=== PATIENT | female | born 1955 | race Two or more races ===

== ENCOUNTER 2016-11-15 13:27 | Emergency (ER) | payer OTHER ==
[2016-11-15 13:47] VITALS: BMI 43.9
--- NOTE | 2016-11-15 14:37 | PDOC ---
History of Present Illness - General Chief Complaint: Edema Stated Complaint: SWOLLEN LEGS Time Seen by Provider: 11/15/16 13:54 History Source: Patient, Other (daughter) Exam Limitations: Language Barrier - History of Present Illness Initial Comments: 11/15/16 14:32 61-year-old female presents to the ED with complaints of bilateral lower extremity pressure and swelling for the past 2 months left leg greater than the right. Patient states is went to other ERs and was given injections, recommended physical therapy and given antiembolic stockings with no improvement. Patient states has not followed up with her PCP since onset and decided come to the ER due to increased pain. Patient denies skin discoloration , sensory changes, or decreased warmth to the lower portion of her legs. Patient states pain, shortness of breath or chest pain. Timing/Duration: other (2 months) Severity: moderate Associated Symptoms: reports: denies symptoms Past History - Past Medical History Allergies/Adverse Reactions: Allergies Allergy/AdvReac Type Severity Reaction Status Date / Time No Known Allergies Allergy Verified 11/15/16 13:42 Home Medications: Ambulatory Orders Unobtainable [Unobtainable] 06/02/16 GI Disorders: Yes (GERD) HTN: Yes Hypercholesterolemia: Yes Thyroid Disease: Yes (on meds) - Psycho/Social/Smoking Cessation Hx Anxiety: No Suicidal Ideation: No Smoking History: Never smoked Have you smoked in the past 12 months: No Hx Alcohol Use: No Drug/Substance Use Hx: No Patient Lives Alone: No Lives with/in: family Review of Systems - Review of Systems Able to Perform ROS?: Yes Constitutional: No: Symptoms Reported Cardiac (ROS): Yes: Edema (bilateral lower extremity) ABD/GI: No: Symptoms Reported : No: Symptoms Reported Musculoskeletal: Yes: Joint Swelling, Muscle Pain Integumentary: No: Symptoms Reported Neurological: No: Symptoms reported Hematologic/Lymphatic: No: Symptoms Reported *Physical Exam - Vital Signs Last Vital Signs Temp Pulse Resp BP Pulse Ox 98 F 92 H 19 143/80 95 11/15/16 13:43 11/15/16 13:43 11/15/16 13:43 11/15/16 13:43 11/15/16 13:43 - Physical Exam General Appearance: Yes: Nourished, Appropriately Dressed. No: Apparent Distress HEENT: positive: EOMI, JUAN. negative: Pale Conjunctivae Neck: positive: Supple Respiratory/Chest: positive: Lungs Clear, Normal Breath Sounds. negative: Respiratory Distress, Accessory Muscle Use Cardiovascular: positive: Regular Rhythm, Regular Rate. negative: Murmur Gastrointestinal/Abdominal: positive: Soft. negative: Tenderness Lymphatic: negative: Adenopathy Extremity: positive: Normal Capillary Refill, Normal Range of Motion, Tender ( generalized bilateral lower extremities), Pedal Edema ( 2-3+ non pitting). negative: Calf Tenderness Integumentary: positive: Normal Color, Warm, Moist Neurologic: positive: Motor Strength 5/5 (ambulatory) ED Treatment Course - LABORATORY CBC & Chemistry Diagram: 11/15/16 14:29 11/15/16 14:29 - RADIOLOGY Radiology Studies Ordered: Category Date Time Status DUPLEX VASCUL US-2LEGS [US] Stat Ultrasound 11/15/16 14:27 Ordered Medical Decision Making - Medical Decision Making 11/15/16 14:35 Patient with ongoing lower extremity swelling and pressure. Patient states has tried medications, physical therapy, elevation of legs and stockings with no improvement. Patient states has not seen a vascular physician nor has she seen her PCP and only has been using clinics or ERs. On exam patient appears to have lymphadenopathy secondary to decreased circulation. I will check patient's CBC comp and BNP along with bilateral lower extremity duplex to rule out other etiology. If minimal patient will be referred to Dr. Cohen 11/15/16 16:46 Laboratory Tests 11/15/16 11/15/16 14:29 14:29 WBC 5.2 Hgb 13.0 Neutrophils % 45.1 Sodium 141 Potassium 4.2 BUN 17 D Creatinine 0.6 Calcium 8.4 L Total Bilirubin 0.3 D AST 37 ALT 37 B-Natriuretic Peptide 54.84 Albumin 3.3 L Ultrasound shows no evidence of DVT as also noted left-sided suprapatellar effusion. Patient will be given a referral to Dr. Cohen,told to elevate extremities and use antiembolic stockings until follow-up. *DC/Admit/Observation/Transfer Diagnosis at time of Disposition: Venous insufficiency of both lower extremities - Discharge Dispostion Disposition: HOME Condition at time of disposition: Good - Referrals Referrals: Constantino Cohen MD [Staff Physician] - - Patient Instructions Printed Discharge Instructions: Venous Insufficiency (Alternative Therapy), DI for Edema Due to Venous Stasis Additional Instructions: Please follow up with referred physician. Please use antiembolic stockings and elevate your legs when not walking.
[2016-11-15 14:38] LABS: BASOPHIL 0.7 % (0-2.0); EOSINOPHIL 6.6 % (0-4.5); MCH 28.4 pg (25.7-33.7); MCHC 33.3 g/dl (32.0-36.0); MEAN CELL VOLUME 85.3 fl (80-96); MEAN PLT VOLUME 9.7 fl (7.5-11.1); NEUTROPHILS 45.1 % (42.8-82.8); PLATELET COUNT 206 K/MM3 (134-434); RDW 13.9 % (11.6-15.6); WHITE BLOOD COUNT 5.2 K/mm3 (4.0-10.0)
[2016-11-15 15:06] LABS: ALBUMIN 3.3 g/dl (3.4-5.0); ALK PHOS 54 U/L (45-117); ANION GAP 9 (8-16); BILIRUBIN,TOTAL 0.3 mg/dL (0.2-1.0); CALCIUM 8.4 mg/dL (8.5-10.1); CO2 27 mmol/L (21-32); CREATININE 0.6 mg/dL (0.55-1.02); GLUCOSE,RANDOM 105 mg/dL (74-106); SGPT/ALT 37 U/L (12-78); TOT PROT 7.3 g/dl (6.4-8.2)
[2016-11-15 15:10] LABS: SGOT/AST 37 U/L (15-37)
[2016-11-15 16:58] VITALS: BP 140/85; PULSE 81; TEMP 98.6
== END 2016-11-15 16:59 | disposition home or self-care (01) ==
LOC: JER 13:27
DX: I87.2 Venous insufficiency (chronic) (peripheral) (principal); M25.462 Effusion, left knee; I10 Essential (primary) hypertension; E78.00 Pure hypercholesterolemia, unspecified; K21.9 Gastro-esophageal reflux disease without esophagitis; E07.9 Disorder of thyroid, unspecified
CPT/HCPCS: 36415; 80053; 83880; 85025; 93970-TC; 99284-25

== ENCOUNTER 2019-04-19 18:29 | Emergency (ER) | payer OTHER ==
[2019-04-19 18:44] VITALS: BP 171/85; PULSE 75; TEMP 97.2; BMI 29.2
== END 2019-04-19 19:39 | disposition left against medical advice (07) ==
LOC: JER 18:29
DX: Z53.21 Procedure and treatment not carried out due to patient leaving prior to being seen by health care provider (principal)
CPT/HCPCS: 99281-25